=== PATIENT | male | born 1990 | race Caucasian/White ===

== ENCOUNTER → 2018-08-10 | Outpatient (CLI) | payer OTHER ==
--- NOTE | 2018-08-11 22:11 | MR ---
EXAMINATION TYPE: MR wrist LT wo con DATE OF EXAM: 08/10/2018 COMPARISON: None HISTORY: Carpal tunnel syndrome, left Standard multiplanar, multisequence MRI departmental protocol Multiplanar, multisequence images of the left wrist were acquired. FINDINGS: Flexor and extensor tendons of the wrist appear intact. Carpal bones show normal joint spac es. I see no bony destructive process. There is no sign of joint effusion. The triangular cartilage a ppears normal. I see no pathologic fluid collection. There is very slight increased signal in the hypothenar muscle on the T2 images at the level of the m id metacarpals. IMPRESSION: Slight increased fluid signal in the hypothenar muscle. This is nonspecific and could relate to minim al myositis. No evidence of tendinitis. No fracture.
== END | disposition home or self-care (01) ==
LOC: RADMRIMAIN 13:13
PROVIDERS: ATTEND Family Medicine
DX: R93.6 Abnormal findings on diagnostic imaging of limbs (principal)

== ENCOUNTER → 2018-08-24 | Outpatient (CLI) | payer OTHER ==
--- NOTE | 2018-08-27 01:52 | MR ---
EXAMINATION TYPE: MR hand LT wo con DATE OF EXAM: 08/24/2018 COMPARISON: None HISTORY: Carpal tunnel syndrome Standard multiplanar, multisequence MRI departmental protocol Multiplanar, multisequence images of the left hand were acquired. FINDINGS: The phalanges appear intact. Metacarpals are intact. Joint spaces overall are fairly well-m aintained. There is mild spurring at the first MP joint. There is small joint effusion at the IP join t of the thumb. I see no evidence of a fracture. There is no focal bone destruction. There is some in creased signal in the ulnar side of the hand within muscle bundle. This muscle is the opponens digiti minimi. This could relate to localized inflammatory process or fatty infiltration. The other muscles of the hand have fairly normal signal pattern. The flexor tendons of the hand appear intact. Extensor tendons appear intact. IMPRESSION: Small amount of joint fluid seen at the MP joint and IP joint of the thumb. This is consistent with m ild synovitis. No fracture seen. Signal changes within the opponens digiti minimi could relate to atrophy and fatty replacement.
== END | disposition home or self-care (01) ==
LOC: RADMRIMAIN 14:02
PROVIDERS: ATTEND Family Medicine
DX: M25.442 Effusion, left hand (principal); M89.8X4 Other specified disorders of bone, hand; G56.00 Carpal tunnel syndrome, unspecified upper limb